=== PATIENT | female | born 1965 | race Caucasian/White ===

== ENCOUNTER 2017-03-04 10:43 | Emergency (ER) | payer BC ==
[~2017-03-04] VITALS: Ht 160 cm; Wt 73.0 kg
[~2017-03-04 10:43] MED LIST: ASCO100072 PO; ASPI-496 PO; ATOR80TA PO; CARV12.52 PO; CARV6.252 PO; CLOP75TA PO; FAMO20TA7 PO; LISI-167 PO; LOSA50TA6 PO; NICO1PAT10 TD; PRAV20TA2 PO; UBID100C24 PO
[2017-03-04] MEDS ORDERED: LORazepam 1MG TABLET ONE (11:25)
[2017-03-04 11:29] LABS: HEMATOCRIT 46.3 % (34.6-47.8); HEMOGLOBIN 15.5 g/dL (11.7-16.4); WHITE BLOOD COUNT 6.2 x10^3/uL (3.4-10)
[2017-03-04] MEDS ORDERED: LORazepam 1MG TABLET PO ONE (11:30)
[2017-03-04 11:42] LABS: BLOOD UREA NITROGEN 14 mg/dL (7-18)
[2017-03-04 11:48] LABS: IS PT STATUS REG ER OR PRE ER? YES
[2017-03-04 12:06] LABS: DIFF TOTAL CELLS COUNTED 100 CELL DIFF
[2017-03-04 12:08] LABS: VERIFY COUNTS? YES
[2017-03-04 13:59] VITALS: BP 111/44
== END 2017-03-04 14:01 | disposition home or self-care (01) ==
LOC: ED 11:59
DX: R07.89 Other chest pain (principal); F43.0 Acute stress reaction; F41.9 Anxiety disorder, unspecified; F32.9 Major depressive disorder, single episode, unspecified; I25.10 Atherosclerotic heart disease of native coronary artery without angina pectoris; I10 Essential (primary) hypertension; F17.200 Nicotine dependence, unspecified, uncomplicated; E11.9 Type 2 diabetes mellitus without complications; E78.5 Hyperlipidemia, unspecified
CPT/HCPCS: 36415; 71010; 80048; 82040; 83880; 84484; 85025; 93005; 99285

== ENCOUNTER 2017-08-19 10:48 | Emergency (ER) | payer SELFPAY ==
[~2017-08-19] VITALS: Ht 160 cm; Wt 69.7 kg
[~2017-08-19 10:48] MED LIST changes: +NICO-485 TD; -NICO1PAT10 TD
[2017-08-19 10:50] VITALS: BP 150/74
== END 2017-08-19 12:43 | disposition left against medical advice (07) ==
LOC: ED 12:37
DX: Z53.21 Procedure and treatment not carried out due to patient leaving prior to being seen by health care provider (principal)

== ENCOUNTER 2020-06-25 15:43 | Emergency (ER) | payer OTHER ==
[~2020-06-25] VITALS: Ht 162.6 cm; Wt 82.0 kg
[~2020-06-25 15:43] MED LIST changes: +LOSA50TA14 PO; -LOSA50TA6 PO
--- NOTE | 2020-06-25 15:54 | NUR ---
+PHOTOPHOBIC, +PAIN +REDNESS +SWELLING L EYE. CANNOT OPEN IT. TURNED LIGHTS OFF, CALL HEART IN REACH. LABS FROM [facility] DO NOT INDICATE SEPSIS.
[2020-06-25] MEDS ORDERED: PROPARACAINE OPHTH 0.5%, 15ML ONE (16:13)
--- NOTE | 2020-06-25 16:15 | NUR ---
JULIO MÉNDEZ AND LAW QUIROZ IN ROOM. AWAITING OPTHO.
[2020-06-25] MEDS ORDERED: HYDROmorphone 1 MG/ML, 1ML INJ IV ONE (16:30)
[2020-06-25] MEDS ORDERED: PROPARACAINE OPHTH 0.5%, 15ML EACHEYE ONE (16:30)
[2020-06-25] MEDS ORDERED: HYDROmorphone 1 MG/ML, 1ML INJ ONE (16:48)
--- NOTE | 2020-06-25 17:20 | NUR ---
medicated for pain w dilaudid. optho in room for eval. as
[2020-06-25 18:26] VITALS: BP 132/74
== END 2020-06-25 18:29 | disposition home or self-care (01) ==
LOC: ED 16:31
DX: B00.52 Herpesviral keratitis (principal); E11.9 Type 2 diabetes mellitus without complications; I25.10 Atherosclerotic heart disease of native coronary artery without angina pectoris; E78.5 Hyperlipidemia, unspecified; I10 Essential (primary) hypertension
CPT/HCPCS: 96374; 99283; J1170

== ENCOUNTER 2021-01-08 14:37 | Emergency (ER) | payer OTHER ==
[~2021-01-08] VITALS: Ht 162.6 cm; Wt 107.3 kg
[2021-01-08] MEDS ORDERED: DIPH,PERTUSS(ACELL),TET VAC/PF 0.5 ML IM-VACC ONE ×2 (15:30→15:34)
[2021-01-08] MEDS ORDERED: LIDOCAINE-MPF 1%, 5ML INFIL ONE (15:30)
[2021-01-08] MEDS ORDERED: LIDOCAINE-MPF 1%, 5ML ONE (15:34)
[2021-01-08] MEDS ORDERED: NEOSPORIN OINT. PKT 1 PACKET ONE ×2 (15:34→16:49)
--- NOTE | 2021-01-08 15:36 | NUR ---
ER DEV AT BS TO NUMB PT'S L EYEBROW LAC. PT C/O HEADACHE.
--- NOTE | 2021-01-08 16:00 | NUR ---
PT TO IMAGING VIA [facility].
[2021-01-08] MEDS ORDERED: ACETAMINOPHEN 500 MG TABLET ONE (16:34)
[2021-01-08 16:42] VITALS: BP 132/72
[2021-01-08] MEDS ORDERED: ACETAMINOPHEN 500 MG TABLET PO ONE (17:00)
== END 2021-01-08 17:05 | disposition home or self-care (01) ==
LOC: ED 17:00
DX: S01.112A Laceration without foreign body of left eyelid and periocular area, initial encounter (principal); I10 Essential (primary) hypertension; I25.10 Atherosclerotic heart disease of native coronary artery without angina pectoris; E11.9 Type 2 diabetes mellitus without complications; E78.5 Hyperlipidemia, unspecified; W18.30XA Fall on same level, unspecified, initial encounter; Y93.89 Activity, other specified; Y92.009 Unspecified place in unspecified non-institutional (private) residence as the place of occurrence of the external cause; Y99.8 Other external cause status
CPT/HCPCS: 12052; 70450; 72125; 90471; 90715

== ENCOUNTER 2021-01-17 07:12 | Emergency (ER) | payer OTHER ==
[~2021-01-17] VITALS: Ht 162.6 cm; Wt 109.3 kg
[2021-01-17 07:15] VITALS: BP 197/74
--- NOTE | 2021-01-17 07:28 | NUR ---
RETAIL RESET MERCHANDISER: PT TO ROOM FROM [facility]
== END 2021-01-17 07:56 | disposition home or self-care (01) ==
LOC: ED 07:54
DX: S01.112D Laceration without foreign body of left eyelid and periocular area, subsequent encounter (principal); E11.9 Type 2 diabetes mellitus without complications; I25.10 Atherosclerotic heart disease of native coronary artery without angina pectoris; I10 Essential (primary) hypertension; E78.5 Hyperlipidemia, unspecified; X58.XXXD Exposure to other specified factors, subsequent encounter
CPT/HCPCS: 99281